=== PATIENT | male | born 1975 | race Caucasian/White ===

== ENCOUNTER 2017-03-12 23:28 | Emergency (ER) | payer MEDICAID, MEDICARE ==
[~2017-03-12] VITALS: Ht 180.3 cm; Wt 60.8 kg
[~2017-03-12 23:28] MED LIST: /CELE20CA OR; /DULO30CA; ACET500C; IBUP800T; LODINE; LYRI150C; MOTR200T4; VICO5TAB OR; VICODIN OR
[2017-03-12] MEDS ORDERED: TRAM50TA2 PO (23:42)
[2017-03-12] MEDS ORDERED: LYRI150C PO (23:42)
[2017-03-13] MEDS ORDERED: FLUORESCEIN OPHTH 1 MG STRIP OU ONE (02:45)
[2017-03-13] MEDS ORDERED: TETRACAINE 0.5% OPHTH SOLN 4ML OU ONE (02:45)
[2017-03-13 03:03] VITALS: BP 117/80
[2017-03-13] MEDS ORDERED: OFLOXACIN 0.3 % (OCUFLOX) OPTH SOL 5ML OD ONE (03:15)
[2017-03-13] MEDS ORDERED: OFLO0.3D57 OD (03:21)
== END 2017-03-13 03:35 | disposition home or self-care (01) ==
LOC: M ED 03-13 00:45
DX: T15.91XA Foreign body on external eye, part unspecified, right eye, initial encounter (principal); X58.XXXA Exposure to other specified factors, initial encounter; Y92.9 Unspecified place or not applicable; Y93.89 Activity, other specified; Y99.9 Unspecified external cause status; M54.5 Low back pain; F17.200 Nicotine dependence, unspecified, uncomplicated

== ENCOUNTER → 2018-09-12 | Outpatient (REF) | payer MEDICARE, MEDICAID ==
[2018-09-12 12:45] LABS: BASO # 0.1 10^3/uL (0.0-0.2); BASO % 1.2 % (0.0-1.0); EOS # 0.1 10^3/uL (0.0-0.50); EOS % 1.6 % (0.0-3.0); HEMATOCRIT 50.3 % (42.0-52.0); HEMOGLOBIN 17.3 g/dl (13.5-17.5); IMMATURE GRANULOCYTE % 0.4 % (0-3.0); LYMPH # 2.7 10^3/uL (1.5-4.5); LYMPH % 31.8 % (24.0-44.0); MEAN CORPUSCULAR HEMOGLOBIN 31.7 pg (27.0-33.0); MEAN CORPUSCULAR HGB CONC 34.4 g/dl (32.0-36.5); MEAN CORPUSCULAR VOLUME 92.3 fl (80.0-96.0); MONO # 0.7 10^3/uL (0.0-0.8); MONO % 8.6 % (0.0-5.0); NEUTROPHILS # 4.7 10^3/uL (1.8-7.7); NEUTROPHILS % 56.4 % (36.0-66.0); PLATELET COUNT, AUTOMATED 303 10^3/uL (150-450); RED BLOOD COUNT 5.45 10^6/uL (4.30-6.10); RED CELL DISTRIBUTION WIDTH 13.3 % (11.5-14.5); WHITE BLOOD COUNT 8.4 10^3/uL (4.0-10.0)
[2018-09-12 13:42] LABS: ALBUMIN 4.2 GM/DL (3.2-5.2); ALKALINE PHOSPHATASE 71 U/L (45-117); ALT/SGPT 18 U/L (12-78); ANION GAP 3 MEQ/L (8-16); AST/SGOT 18 U/L (7-37); BILIRUBIN,TOTAL 0.4 MG/DL (0.2-1.0); BLOOD UREA NITROGEN 11 MG/DL (7-18); CALCIUM LEVEL 9.3 MG/DL (8.5-10.1); CARBON DIOXIDE LEVEL 32 MEQ/L (21-32); CHLORIDE LEVEL 106 MEQ/L (98-107); CHOLESTEROL LEVEL 176 MG/DL (<200); CHOLESTEROL RISK RATIO 4.292 (<5); CREATININE FOR GFR 1.08 MG/DL (0.70-1.30); GLOMERULAR FILTRATION RATE > 60.0 (>60); GLUCOSE, FASTING 82 MG/DL (70-100); HDL CHOLESTEROL 41 MG/DL (>40); LDL CHOLESTEROL 80 MG/DL (<100); NON-HDL-C 135 MG/DL; POTASSIUM SERUM 4.3 MEQ/L (3.5-5.1); SODIUM LEVEL 141 MEQ/L (136-145); TOTAL 25(OH) VITAMIN D 26.7 NG/ML (30.0-100.0); TRIGLYCERIDES LEVEL 277 MG/DL (<150)
== END ==
LOC: M SFHCADAM 10:51
DX: F17.210 Nicotine dependence, cigarettes, uncomplicated (principal); K92.1 Melena; K64.8 Other hemorrhoids; Z79.899 Other long term (current) drug therapy
CPT/HCPCS: 84443

== ENCOUNTER → 2018-11-23 | Outpatient (CLI) | payer MEDICARE, MEDICAID ==
[~2018-11-23] MED LIST changes: +LYRI150C PO; +OFLO0.3D57 OD; +TRAM50TA2 PO
--- NOTE | 2018-11-23 16:08 | REP ---
Clinical: Right anterior chest wall pain Technique: Frontal view of the chest with multiple views of the right hemithorax. Findings: Frontal view of the chest demonstrates no acute cardiopulmonary process. Multiple views of the right hemithorax demonstrates a very subtle nondisplaced fracture along the anterolateral margin of the right sixth rib best identified on image 4 of 5. Impression: Very subtle nondisplaced fracture along the anterolateral margin of the right sixth rib. Electronically Signed by Navi Stockton MD 11/23/2018 04:00 P
== END ==
LOC: M ADAMS 15:17
PROVIDERS: ATTEND Physician Assistant
DX: S22.31XA Fracture of one rib, right side, initial encounter for closed fracture (principal); X58.XXXA Exposure to other specified factors, initial encounter; Y92.89 Other specified places as the place of occurrence of the external cause

== ENCOUNTER → 2018-12-05 | Outpatient (CLI) | payer MEDICARE, MEDICAID ==
--- NOTE | 2018-12-05 19:24 | REP ---
Unilateral right ribs PA chest four views History: Pain Comparison: 11/23/2018 The lungs are clear. The heart is normal in size. The pulmonary vasculature is normal in appearance. The bony structure is intact. The previously noted right sixth rib fracture is not seen in the present study. Impression: No acute disease. The previously noted right sixth rib fracture is not seen in the present study. Electronically Signed by Dread Peña MD 12/05/2018 07:15 P
== END ==
LOC: M ADAMS 18:13
PROVIDERS: ATTEND Physician Assistant Medical
DX: S22.31XD Fracture of one rib, right side, subsequent encounter for fracture with routine healing (principal); X58.XXXD Exposure to other specified factors, subsequent encounter

== ENCOUNTER → 2020-08-11 | Outpatient (CLI) | payer MEDICARE, MEDICAID ==
[~2020-08-11] MED LIST changes: -/CELE20CA OR; -/DULO30CA; +CELE1CAP4 OR; +CYMB1CAP5
--- NOTE | 2020-08-28 09:42 | REP ---
LUMBAR SPINE SERIES: 5-VIEWS HISTORY: Lumbar radiculopathy. COMPARISON: None. FINDINGS: There is a mild dextroconvex curve on the AP radiograph. Lumbar vertebral body heights are preserved. Alignment is normal otherwise. There is degenerative disc narrowing at L4-5 with some reactive sclerosis and early spurring. Pedicles and posterior elements are intact. There is no evidence of spondylolysis or spondylolisthesis. No bony destructive lesion is seen. Psoas margins are symmetric. Sacrum and SI joints are intact. IMPRESSION: Degenerative disc changes L4-5. Mild dextroconvex curvature. Otherwise negative. MTDD
== END ==
LOC: M ADAMS 10:09
PROVIDERS: ATTEND Physician Assistant
DX: M54.17 Radiculopathy, lumbosacral region (principal)

== ENCOUNTER → 2021-04-01 | Outpatient (REF) | payer MEDICAID, MEDICARE | LOC: M LAB REF 16:34 | PROVIDERS: ATTEND Physician Assistant | DX: C44.301 Unspecified malignant neoplasm of skin of nose (principal) ==

== ENCOUNTER → 2023-02-10 | Outpatient (CLI) | payer MEDICAID, OTHER | LOC: M ADAMS 14:52 | PROVIDERS: ATTEND Physician Assistant Medical | DX: S99.921A Unspecified injury of right foot, initial encounter (principal); M25.571 Pain in right ankle and joints of right foot; W18.30XA Fall on same level, unspecified, initial encounter; Y92.009 Unspecified place in unspecified non-institutional (private) residence as the place of occurrence of the external cause ==

== ENCOUNTER → 2024-05-30 | Outpatient (REF) | payer OTHER ==
[2024-05-30 17:30] LABS: BASO # 0.1 10^3/uL (0.0-0.2); BASO % 1.1 % (0.0-1.0); EOS # 0.1 10^3/uL (0.0-0.5); EOS % 1.6 % (0.0-3.0); HEMATOCRIT 49.7 % (42.0-52.0); HEMOGLOBIN 15.9 g/dl (13.5-17.5); LYMPH # 2.2 10^3/uL (1.5-5.0); LYMPH % 27.2 % (24.0-44.0); MEAN CORPUSCULAR VOLUME 96.9 fl (80.0-96.0); MONO # 0.7 10^3/uL (0.0-0.8); MONO % 8.9 % (2.0-8.0); NEUTROPHILS # 4.8 10^3/uL (1.5-8.5); NEUTROPHILS % 60.9 % (36.0-66.0); PLATELET COUNT, AUTOMATED 309 10^3/uL (150-450); RED BLOOD COUNT 5.13 10^6/uL (4.30-6.10); WHITE BLOOD COUNT 7.9 10^3/uL (4.0-10.0)
[2024-05-30 17:59] LABS: IRON (FE) 72 UG/DL (65-175); PERCENT SATURATION 26.1 % (19.7-50.0); TOTAL IRON BINDING CAPACITY 276 UG/DL (250-425)
[2024-05-30 18:00] LABS: ALBUMIN 3.7 G/DL (3.2-5.2); ALKALINE PHOSPHATASE 70 U/L (46-116); ALT/SGPT 14 U/L (7.0-40); AST/SGOT 16 U/L (<34); BILIRUBIN,TOTAL 0.3 MG/DL (0.3-1.2); BLOOD UREA NITROGEN 14 MG/DL (9-23); CARBON DIOXIDE LEVEL 26 MMOL/L (20-31); CHLORIDE LEVEL 109 MMOL/L (98-107); CHOLESTEROL LEVEL 163 MG/DL (<200); CHOLESTEROL RISK RATIO 4.06 (<5); GLOMERULAR FILTRATION RATE > 60.0 (>60); GLUCOSE, FASTING 72 MG/DL (60-100); HDL CHOLESTEROL 40.1 MG/DL (>40); LDL CHOLESTEROL 88.5 MG/DL (<100); NON-HDL-C 122.9 MG/DL; POTASSIUM SERUM 4.2 MMOL/L (3.5-5.1); SODIUM LEVEL 141 MMOL/L (136-145); TOTAL PROTEIN 5.9 G/DL (5.7-8.2); TRIGLYCERIDES LEVEL 172 MG/DL (<150)
[2024-05-30 18:01] LABS: FERRITIN 22.7 NG/ML (10.5-307.3); THYROID STIMULATING HORMONE 1.566 uIU/ML (0.55-4.78)
== END ==
LOC: M SFHCADAM 09:52
PROVIDERS: ATTEND Physician Assistant Medical
DX: Z00.00 Encounter for general adult medical examination without abnormal findings (principal); F17.210 Nicotine dependence, cigarettes, uncomplicated; Z13.220 Encounter for screening for lipoid disorders; Z13.1 Encounter for screening for diabetes mellitus; Z13.29 Encounter for screening for other suspected endocrine disorder; Z13.21 Encounter for screening for nutritional disorder; K92.1 Melena

== ENCOUNTER → 2024-07-17 | Outpatient (CLI) | payer OTHER | LOC: M ADAMS 08:03 → M WUC 08:03 | PROVIDERS: ATTEND Physician Assistant Medical | DX: M25.512 Pain in left shoulder (principal) ==

== ENCOUNTER 2024-08-28 10:01 | Day surgery (SDC) | payer OTHER ==
[~2024-08-28] VITALS: Ht 177.8 cm; Wt 61.2 kg
[~2024-08-28 10:01] MED LIST changes: +NAPR-885 PO
[2024-08-28] MEDS: NS 1,000 ML IV ONE (10:19)
[2024-08-28 11:53] VITALS: TEMP 97.4
[2024-08-28 12:12] VITALS: BP 107/64; O2SAT 98
[2024-08-28] MEDS ORDERED: propofoL 200 MG/20 ML VIAL As Ordered ONE (12:22)
[2024-08-28] MEDS ORDERED: LIDOCAINE 2% 100MG/5ML SDV (FOR ANES.) As Ordered ONE (12:22)
== END 2024-08-28 12:17 | disposition home or self-care (01) ==
LOC: M OPP 10:01
PROVIDERS: ATTEND Surgery
DX: K63.5 Polyp of colon (principal); K62.5 Hemorrhage of anus and rectum; K64.9 Unspecified hemorrhoids; K64.4 Residual hemorrhoidal skin tags; J43.9 Emphysema, unspecified; Z85.828 Personal history of other malignant neoplasm of skin; F17.210 Nicotine dependence, cigarettes, uncomplicated

== ENCOUNTER → 2025-02-22 | Outpatient (CLI) | payer OTHER | LOC: M RAD 10:17 | PROVIDERS: ATTEND Physician Assistant | DX: M79.671 Pain in right foot (principal) ==

== ENCOUNTER → 2025-08-02 | Outpatient (CLI) | payer OTHER | LOC: M ADAMS 10:01 | PROVIDERS: ATTEND Physician Assistant | DX: J93.83 Other pneumothorax (principal) ==

== ENCOUNTER → 2025-10-09 | Outpatient (CLI) | payer OTHER | LOC: M RAD 09:02 | PROVIDERS: ATTEND Physician Assistant Medical | DX: F17.210 Nicotine dependence, cigarettes, uncomplicated (principal) ==